=== PATIENT | female | born 1965 | race Caucasian/White ===

== ENCOUNTER → 2017-11-10 | Outpatient (CLI) | payer BC, OTHER ==
--- NOTE | 2017-11-10 12:13 | BD ---
EXAMINATION TYPE: MG DEXA axial skeleton. DATE OF EXAM: 11/10/2017 COMPARISON: NONE CLINICAL HISTORY: 52 YR OLD FEMALE...ICD-10 CODE: M19.90 OSTEOARTHRITIS Height: 60.5 Weight: 233 FRAX RISK QUESTIONS: Alcohol (3 or more units per day): NO Family History (Parent hip fracture): NO Glucocorticoids (More than 3mos): NO (Ex: prednisone, prednisolone, methylprednisolone, dexamethasone, and hydrocortisone). History of Fracture in Adulthood: NO Secondary Osteoporosis: NO 1. Type 1 Diabetes: NO 2. Hyperthyroidism: NO 3. Menopause before 45: NO 4. Malnutrition: NO 5. Chronic liver disease: NO Rheumatoid Arthritis: NO Current Tobacco Use: QUIT 6 YRS AGO RISK FACTORS HISTORY OF: Family History of Osteoporosis: NONE KNOWN Active: NOT REALLY Diet low in dairy products/other sources of calcium: NO Postmenopausal woman: YES AT AGE 50 YRS OLD Hyperparathyroidism: NO Adrenal Insufficiency: NO MEDICATIONS: Additional Medications: BP MEDS, XANAX, NARCO, Additional History: TOTAL LT KNEE, OSTEOARTHRITIS, HYPERTENSION, SCOLIOSIS, EXAM MEASUREMENTS: Bone mineral densitometry was performed using the [employer]. Bone mineral density as measured about the Lumbar spine is: ----- L1-L4(G/cm2): 1.226 T Score Values are as follows: ----- L1: -0.1 ----- L2: -0.4 ----- L3: 0.6 ----- L4: 1.5 ----- L1-L4: 0.4 Bone mineral density FIRST BONE DENSITY STUDY......BASELINE Bone mineral density about the R hip (g/cm2): 0.934 Bone mineral density about the L hip (g/cm2): 0.857 T Score values are as follows: -----R Neck: -0.9 -----L Neck: -1.1 -----R Total: -0.6 -----L Total: -1.2 Bone mineral density BASELINE STUDY FRAX%S: THERE IS A3.9% CHANCE OF A MAJOR OSTEOPOROTIC FX AND A 0.2% FOR HIP FX....PROBABILITY OF F X IN 10 YRS TIME IMPRESSION: Osteopenia (T Score between -2.5 and -1) with regards to the left femur. There is slightly increased risk of fracture and the patient may be considered for treatment. Re-Screen 2-5 years. NOTE: T-SCORE=SD OF THE YOUNG ADULT MEAN.
--- NOTE | 2017-11-12 09:58 | MM ---
Reason for exam: screening (asymptomatic). Last mammogram was performed 5 years and 11 months ago. Physical Findings: A clinical breast exam by your physician is recommended on an annual basis and results should be correlated with mammographic findings. MG Screening Mammo w CAD Bilateral CC and MLO view(s) were taken. Prior study comparison: December 09, 2011, bilateral digital screening mammo w/CAD. September 27, 2010, bilateral digital screening mammo w/CAD. The breast tissue is almost entirely fat. No significant changes when compared with prior studies. ASSESSMENT: Negative, BI-RAD 1 RECOMMENDATION: Routine screening mammogram of both breasts in 1 year.
== END | disposition home or self-care (01) ==
LOC: RADMAMWWP 09:33
PROVIDERS: ATTEND Family Medicine
DX: Z12.31 Encounter for screening mammogram for malignant neoplasm of breast (principal); M85.852 Other specified disorders of bone density and structure, left thigh; M19.90 Unspecified osteoarthritis, unspecified site
CPT/HCPCS: 77067; 77080

== ENCOUNTER 2018-09-25 18:33 | Inpatient (IN) | payer BC, OTHER ==
--- NOTE | 2018-09-25 19:01 | ED ---
Pediatric SOB HPI - General Chief Complaint: Shortness of Breath Stated Complaint: SOB/facial numbness Time Seen by Provider: 09/25/18 18:42 Source: patient, RN notes reviewed, old records reviewed Mode of arrival: ambulatory Limitations: no limitations - History of Present Illness Initial Comments: 53-year-old female history hypertension presents for evaluation of mild dyspnea , chest tightness, left arm and left face tingling. Patient states over the past 2 days he symptoms have been intermittent, initially attributed to menopausal symptoms. She has no history of CAD. No history of CVA. She is a nonsmoker, nondiabetic. She states that the tingling and numbness in her face and arm they have been ongoing for several months. She denies significant chest pain, this is a mild tightness associated with mild dyspnea. She does report diaphoresis with these episodes. - Related Data Home Medications Medication Instructions Recorded Confirmed Hydrocodone/Acetaminophen [[place] 1 tab PO QID PRN 02/24/14 09/25/18 10-325] ALPRAZolam [Xanax] 1 mg PO Q8HR PRN 05/21/16 09/25/18 Losartan/Hydrochlorothiazide 1 tab PO DAILY 05/21/16 09/25/18 [Losartan-Hctz 100-12.5 mg Tab] Phentermine HCl [Adipex-P] 37.5 mg PO QAM 05/21/16 09/25/18 amLODIPine BESYLATE [Norvasc] 5 mg PO DAILY 05/21/16 09/25/18 Aspirin EC [Ecotrin Low Dose] 81 mg PO DAILY PRN 09/25/18 09/25/18 Allergies Allergy/AdvReac Type Severity Reaction Status Date / Time No Known Allergies Allergy Verified 09/25/18 19:04 Review of Systems ROS Statement: Those systems with pertinent positive or pertinent negative responses have been documented in the HPI. ROS Other: All systems not noted in ROS Statement are negative. Past Medical History Past Medical History: Hypertension Additional Past Medical History / Comment(s): back pain, migraines History of Any Multi-Drug Resistant Organisms: None Reported Past Surgical History: Cholecystectomy, Tubal Ligation Additional Past Surgical History / Comment(s): 05-26-16- TOTAL LT KNEE REPLACEMENT Past Psychological History: Anxiety Smoking Status: Never smoker Past Alcohol Use History: Rare Past Drug Use History: Marijuana - Past Family History Mother Family Medical History: CVA/TIA (Mother at age 60 from CVA post rotator cuff tear surgery repair.), Hypertension, Thyroid Disorder Father History Unknown: Yes Family Medical History: No Reported History, Unable to Obtain (Her father is 88- year-old does not know much about him.) Sister(s) Family Medical History: Neurologic Disorder (Patient had 3 sisters one of them at the age of 40 from intracranial bleed.) Son(s) Family Medical History: No Reported History (Patient has 2 sons no major medical problems) General Exam Limitations: no limitations General appearance: alert, in no apparent distress Head exam: Present: atraumatic, normocephalic Eye exam: Present: normal appearance, PERRL ENT exam: Present: normal exam Neck exam: Present: normal inspection. Absent: tenderness, meningismus Respiratory exam: Present: normal lung sounds bilaterally. Absent: respiratory distress, wheezes, rales Cardiovascular Exam: Present: regular rate, normal rhythm GI/Abdominal exam: Present: soft. Absent: distended, tenderness, guarding Extremities exam: Present: normal inspection, full ROM, normal capillary refill. Absent: pedal edema Neurological exam: Present: alert, oriented X3, CN II-XII intact. Absent: motor sensory deficit Psychiatric exam: Present: normal affect, normal mood Skin exam: Present: warm, dry, intact. Absent: cyanosis, diaphoretic Course Vital Signs 09/25/18 18:38 Temperature 98.1 F Pulse Rate 77 Respiratory 18 Rate Blood Pressure 139/98 O2 Sat by Pulse 97 Oximetry - Reevaluation(s) Reevaluation #1: 09/25/181915 EKG: Normal sinus rhythm, LVH, rate of 64, MS interval 158, QRS duration 98, QTC 46, no ST segment elevation, T-wave inversion in lead 3 Medical Decision Making - Medical Decision Making 53-year-old female presenting for evaluation 2 days of chest pain, dyspnea, left arm tingling. Patient is well-appearing, stable vitals, non-focal neurologic exam. EKG is negative for ST segment elevation. Patient has no known history of CAD, she does have history of hypertension. Workup in the emergency department reveals chest x-ray negative for any acute cardiopulmonary disease, normal CBC, normal CMP, initial troponin is negative, BNP normal 52. Patient's will be placed in observation for serial cardiac enzymes, telemetry, heparin infusion, and cardiology consultation. - Lab Data Result diagrams: 09/25/18 19:13 09/25/18 19:13 Lab Results 09/25/18 09/25/18 09/25/18 Range/Units 19:13 19:13 19:13 WBC 8.9 (3.8-10.6) k/uL RBC 4.93 (3.80-5.40) m/uL Hgb 14.0 (11.4-16.0) gm/dL Hct 42.2 (34.0-46.0) % MCV 85.6 (80.0-100.0) fL MCH 28.4 (25.0-35.0) pg MCHC 33.1 (31.0-37.0) g/dL RDW 14.0 (11.5-15.5) % Plt Count 273 (150-450) k/uL Neutrophils % 49 % Lymphocytes % 40 % Monocytes % 5 % Eosinophils % 3 % Basophils % 1 % Neutrophils # 4.4 (1.3-7.7) k/uL Lymphocytes # 3.6 (1.0-4.8) k/uL Monocytes # 0.5 (0-1.0) k/uL Eosinophils # 0.3 (0-0.7) k/uL Basophils # 0.1 (0-0.2) k/uL PT (9.0-12.0) sec INR (<1.2) APTT (22.0-30.0) sec Sodium 139 (137-145) mmol/L Potassium 4.4 (3.5-5.1) mmol/L Chloride 107 (98-107) mmol/L Carbon Dioxide 22 (22-30) mmol/L Anion Gap 10 mmol/L BUN 15 (7-17) mg/dL Creatinine 0.68 (0.52-1.04) mg/dL Est GFR (CKD-EPI)AfAm >90 (>60 ml/min/1.73 sqM) Est GFR (CKD-EPI)NonAf >90 (>60 ml/min/1.73 sqM) Glucose 97 (74-99) mg/dL Calcium 9.8 (8.4-10.2) mg/dL Magnesium 2.0 (1.6-2.3) mg/dL Total Bilirubin 0.6 (0.2-1.3) mg/dL AST 24 (14-36) U/L ALT 26 (9-52) U/L Alkaline Phosphatase 131 H (38-126) U/L Total Creatine Kinase 76 (30-135) U/L CK-MB (CK-2) 0.5 (0.0-2.4) ng/mL CK-MB (CK-2) Rel Index 0.7 Troponin I <0.012 (0.000-0.034) ng/mL NT-Pro-B Natriuret Pep pg/mL Total Protein 8.5 H (6.3-8.2) g/dL Albumin 4.4 (3.5-5.0) g/dL Lipase 101 (23-300) U/L 09/25/18 09/25/18 Range/Units 19:13 19:13 WBC (3.8-10.6) k/uL RBC (3.80-5.40) m/uL Hgb (11.4-16.0) gm/dL Hct (34.0-46.0) % MCV (80.0-100.0) fL MCH (25.0-35.0) pg MCHC (31.0-37.0) g/dL RDW (11.5-15.5) % Plt Count (150-450) k/uL Neutrophils % % Lymphocytes % % Monocytes % % Eosinophils % % Basophils % % Neutrophils # (1.3-7.7) k/uL Lymphocytes # (1.0-4.8) k/uL Monocytes # (0-1.0) k/uL Eosinophils # (0-0.7) k/uL Basophils # (0-0.2) k/uL PT 9.7 (9.0-12.0) sec INR 0.9 (<1.2) APTT 24.1 (22.0-30.0) sec Sodium (137-145) mmol/L Potassium (3.5-5.1) mmol/L Chloride (98-107) mmol/L Carbon Dioxide (22-30) mmol/L Anion Gap mmol/L BUN (7-17) mg/dL Creatinine (0.52-1.04) mg/dL Est GFR (CKD-EPI)AfAm (>60 ml/min/1.73 sqM) Est GFR (CKD-EPI)NonAf (>60 ml/min/1.73 sqM) Glucose (74-99) mg/dL Calcium (8.4-10.2) mg/dL Magnesium (1.6-2.3) mg/dL Total Bilirubin (0.2-1.3) mg/dL AST (14-36) U/L ALT (9-52) U/L Alkaline Phosphatase (38-126) U/L Total Creatine Kinase (30-135) U/L CK-MB (CK-2) (0.0-2.4) ng/mL CK-MB (CK-2) Rel Index Troponin I (0.000-0.034) ng/mL NT-Pro-B Natriuret Pep 52 pg/mL Total Protein (6.3-8.2) g/dL Albumin (3.5-5.0) g/dL Lipase (23-300) U/L Disposition Clinical Impression: Chest pain, Unstable angina Disposition: ADMITTED IP TO THIS [facility] Condition: Stable Is patient prescribed a controlled substance at d/c from ED?: No Referrals: Chris Vick DO [Primary Care Provider] - 1-2 days Decision to Admit Reason: Admit from EC Decision Date: 09/25/18 Decision Time: 20:32
[2018-09-25 19:30] LABS: Basophils # (A) 0.1 k/uL (0-0.2); Basophils % (A) 1 %; Eosinophils # (A) 0.3 k/uL (0-0.7); Eosinophils % (A) 3 %; HCT 42.2 % (34.0-46.0); Lymphocytes # (A) 3.6 k/uL (1.0-4.8); Lymphocytes % (A) 40 %; MCH 28.4 pg (25.0-35.0); MCHC 33.1 g/dL (31.0-37.0); MCV 85.6 fL (80.0-100.0); Mean Platelet Volume 6.9; Monocytes # (A) 0.5 k/uL (0-1.0); Monocytes % (A) 5 %; Neutrophils # (A) 4.4 k/uL (1.3-7.7); Neutrophils % (A) 49 %; Platelet Count 273 k/uL (150-450); RBC 4.93 m/uL (3.80-5.40); WBC 8.9 k/uL (3.8-10.6)
--- NOTE | 2018-09-25 19:42 | XR ---
EXAMINATION TYPE: XR chest 2V DATE OF EXAM: 09/25/2018 COMPARISON: 02/24/2014 HISTORY: Chest pressure TECHNIQUE: Frontal and lateral views of the chest are obtained. FINDINGS: Heart and mediastinum are normal. Lungs are clear. Costophrenic angles are clear. There ar e chest leads. Bony thorax is intact. IMPRESSION: No active cardiopulmonary disease. Normal heart. No change.
[2018-09-25 19:46] LABS: Creatine Kinase 76 U/L (30-135)
[2018-09-25 19:48] LABS: ALT 26 U/L (9-52); AST 24 U/L (14-36); Albumin 4.4 g/dL (3.5-5.0); Alkaline Phosphatase 131 U/L (38-126); Anion Gap 10 mmol/L; Blood Urea Nitrogen 15 mg/dL (7-17); Calcium 9.8 mg/dL (8.4-10.2); Carbon Dioxide 22 mmol/L (22-30); Chloride 107 mmol/L (98-107); Glucose 97 mg/dL (74-99); Lipase 101 U/L (23-300); Sodium 139 mmol/L (137-145); Total Bilirubin 0.6 mg/dL (0.2-1.3); Total Protein 8.5 g/dL (6.3-8.2)
[2018-09-25 19:56] LABS: Creatine Kinase MB 0.5 ng/mL (0.0-2.4); INR 0.9 (<1.2); Partial Thromboplastin Time 24.1 sec (22.0-30.0); Prothrombin Time 9.7 sec (9.0-12.0)
[2018-09-25 20:00] LABS: Troponin I <0.012 ng/mL (0.000-0.034)
[2018-09-25 20:02] LABS: Potassium 4.4 mmol/L (3.5-5.1)
--- NOTE | 2018-09-25 20:08 | CT ---
EXAMINATION TYPE: CT brain wo con DATE OF EXAM: 09/25/2018 COMPARISON: None HISTORY: Left arm tingling and dizziness. CT DLP: 1048.4 mGycm Automated exposure control for dose reduction was used. FINDINGS: Ventricles of normal size. There is no mass effect nor midline shift. There is no sign of intracrania l hemorrhage. Calvarium is intact. IMPRESSION: NEGATIVE CT SCAN OF THE BRAIN.
[2018-09-25] MEDS ORDERED: ASPIRIN 325 MG TAB PO STA (20:28)
[2018-09-25] MEDS ORDERED: HEPARIN SODIUM,PORCINE 5,000 UNIT/ML 1 ML VIAL IV PRN (20:28)
[2018-09-25] MEDS ORDERED: HEPARIN SOD,PORK IN 0.45% NACL 25,000 UNIT in 0.45% NACL 1 250ML.BAG IV SCH (20:30)
[2018-09-25] MEDS ORDERED: NALOXONE 0.4 MG/ML 1 ML VIAL IV PRN (20:32)
[2018-09-25] MEDS ORDERED: MORPHINE SULFATE 4 MG/ML SYRINGE IV PRN (20:32)
[2018-09-25] MEDS ORDERED: ACETAMINOPHEN TAB 325 MG TAB PO PRN (20:32)
[2018-09-25] MEDS ORDERED: NITROGLYCERIN SL TABS 0.4 MG TAB SUBLINGUAL PRN (20:32)
[2018-09-25] MEDS ORDERED: ONDANSETRON 4 MG/2 ML VIAL IVP PRN (20:32)
[2018-09-25] MEDS: HEPARIN SODIUM,PORCINE 5,000 UNIT/ML 1 ML VIAL IV ONE ×2 (20:53→20:59)
[2018-09-25 21:35] VITALS: BMI 40.8
[2018-09-26 02:16] LABS: Creatine Kinase 58 U/L (30-135)
[2018-09-26 02:30] LABS: Creatine Kinase MB 0.4 ng/mL (0.0-2.4); Troponin I <0.012 ng/mL (0.000-0.034)
[2018-09-26 07:55] LABS: Creatine Kinase 54 U/L (30-135)
[2018-09-26 08:07] LABS: Creatine Kinase MB 0.5 ng/mL (0.0-2.4); Troponin I <0.012 ng/mL (0.000-0.034)
--- NOTE | 2018-09-26 10:11 | CONS ---
CONSULTATION HISTORY: Ms. Hickey is a 53-year-old female who is seen for cardiac evaluation. Patient's medical records were reviewed. The patient has a history of hypertension. The patient gives a history that she has been having intermittent pressure in the chest for last 2 months, which comes and goes, not definitely related to exertion and may come at any time. For last couple of days she was having some tingling and numbness on the left side of the face and the left arm and she came to the emergency room and subsequently was admitted. EKG did not show any acute ischemic changes. She had a CT of the brain which was normal. Patient has a history of hypertension. She does not know about her cholesterol and she does not smoke. There is no family history of premature coronary artery disease. PAST MEDICAL HISTORY: Includes a history of cholecystectomy and tubal ligation. The patient had a total left knee replacement in 2016. FAMILY HISTORY: The patient's mother at the age of 60 from CVA. There is a family history of hypertension. SOCIAL HISTORY: Patient was never a smoker. PHYSICAL EXAMINATION: At present reveals a 53-year-old female who does not appear to be in any acute distress. The patient's initial blood pressure in the emergency room was 139/98 mmHg. Patient's blood pressure now is 131/89 mmHg, heart rate is 55 per minute. HEENT: Examination is negative. NECK: Supple. There is no increase in jugular venous pressure. Both the carotid pulses are felt. There is no bruit. CHEST: Symmetrical HEART: The PMI is not felt. First and second heart sounds are heard. There is no evidence of any murmur. LUNGS: Clinically clear to auscultation and percussion. ABDOMEN: Negative. EXTREMITIES: Peripheral pulses are 2+. EKG shows normal sinus rhythm without any acute ischemic changes. Patient's cardiac enzymes are normal. The patient's proBNP level is 52. IMPRESSION: 1. Chest discomfort suggestive of atypical angina. 2. Left-sided facial numbness, exact etiology undetermined. PLAN: The patient will be evaluated with echocardiogram and stress echo. BETSEY / WILLAM: [id number] /
[2018-09-26] MEDS ORDERED: HYDROcodone/APAP 10-325MG 1 EACH TAB PO PRN (10:48)
[2018-09-26] MEDS ORDERED: ALPRAZolam 1 MG TAB PO PRN (10:48)
[2018-09-26] MEDS ORDERED: ASPIRIN 81 MG PO PRN (10:48)
--- NOTE | 2018-09-26 13:22 | P.HPIM ---
History of Present Illness H&P Date: 09/26/18 Chief Complaint: Chest pain and facial numbness This is 53 years old female with past medical history significant for hypertension presents to the emergency department with chest tightness that started prior to arrival to the emergency and stated that the pain was radiating to her left arm and had numbness in her left face patient was concerned and presented to the emergency. Patient denies any recent upper respiratory infection nausea or vomiting shortness breath diaphoresis or abdominal pain. Patient stated described the pain as tightness in the chest. A shunt was pain free by the time she got to the emergency department but continued to have occasional facial numbness that been going for the last 2 month period and emergency department troponin was negative EKG showed LVH and her troponin was normal for the rest of the series. CAT scan was done and normal chest x-ray was done and normal patient was kept for observation patient denied tobacco alcohol or drug abuse Review of Systems All 14 systems reviewed and negative except as above Past Medical History Past Medical History: Hypertension Additional Past Medical History / Comment(s): back pain, migraines History of Any Multi-Drug Resistant Organisms: None Reported Past Surgical History: Cholecystectomy, Tubal Ligation Additional Past Surgical History / Comment(s): 05-26-16- TOTAL LT KNEE REPLACEMENT Past Anesthesia/Blood Transfusion Reactions: No Reported Reaction Past Psychological History: Anxiety Smoking Status: Former smoker Past Alcohol Use History: Rare Past Drug Use History: Marijuana - Past Family History Mother Family Medical History: CVA/TIA, Hypertension, Thyroid Disorder Father History Unknown: Yes Family Medical History: No Reported History, Unable to Obtain Sister(s) Family Medical History: Neurologic Disorder Son(s) Family Medical History: No Reported History Medications and Allergies Home Medications Medication Instructions Recorded Confirmed Type Hydrocodone/Acetaminophen [[place] 1 tab PO QID PRN 02/24/14 09/25/18 History 10-325] ALPRAZolam [Xanax] 1 mg PO Q8HR PRN 05/21/16 09/25/18 History Losartan/Hydrochlorothiazide 1 tab PO DAILY 05/21/16 09/25/18 History [Losartan-Hctz 100-12.5 mg Tab] Phentermine HCl [Adipex-P] 37.5 mg PO QAM 05/21/16 09/25/18 History amLODIPine BESYLATE [Norvasc] 5 mg PO DAILY 05/21/16 09/25/18 History Aspirin EC [Ecotrin Low Dose] 81 mg PO DAILY PRN 09/25/18 09/25/18 History Allergies Allergy/AdvReac Type Severity Reaction Status Date / Time No Known Allergies Allergy Verified 09/25/18 19:04 Physical Exam Vitals: Vital Signs Temp Pulse Pulse Pulse Resp BP BP 09/26/18 12:00 97.6 F 62 18 138/92 09/26/18 11:56 55 L 18 09/26/18 08:00 97.5 F L 55 L 18 131/89 09/26/18 04:16 57 L 16 133/78 09/26/18 04:00 16 09/26/18 03:48 97.9 F 72 14 137/98 09/26/18 00:00 98.0 F 68 14 136/72 09/25/18 23:45 98.1 F 57 L 16 136/89 09/25/18 23:18 15 09/25/18 21:51 98.7 F 72 15 148/99 09/25/18 21:00 60 16 132/65 09/25/18 18:38 98.1 F 77 18 139/98 Pulse Ox 09/26/18 12:00 97 09/26/18 11:56 09/26/18 08:00 98 09/26/18 04:16 97 09/26/18 04:00 09/26/18 03:48 95 09/26/18 00:00 97 09/25/18 23:45 09/25/18 23:18 09/25/18 21:51 98 09/25/18 21:00 97 09/25/18 18:38 97 Intake and Output 09/25/18 09/26/18 09/26/18 22:59 06:59 14:59 Other: Voiding Method Toilet Toilet # Voids 2 Weight 97.976 kg Gen.: in stated age, no acute distress Heart: Normal S1-S2 Lungs: Clear to auscultation bilaterally Abdomen: Soft, no tenderness, positive bowel sounds in all 4 quadrant no guarding or rebound Skin: No new rash Psych: Alert and oriented 3 Neuro: No focal deficit Results CBC & Chem 7: 09/25/18 19:13 09/25/18 19:13 Labs: Abnormal Lab Results - Last 24 Hours (Table) 09/25/18 Range/Units 19:13 Alkaline Phosphatase 131 H (38-126) U/L Total Protein 8.5 H (6.3-8.2) g/dL Thrombosis Risk Factor Assmnt - Choose All That Apply Each Factor Represents 1 point: Age 41-60 years, Obesity (BMI >25) Thrombosis Risk Factor Assessment Total Risk Factor Score: 2 Thrombosis Risk Factor Assessment Level: Low Risk Assessment and Plan Assessment: 1. Chest tightness. 2. Left facial numbness, chronic. 3. Hypertension area 4. Obesity. 5. Anxiety. 6. Migraine. 7. Chronic back pain. Patient was seen by cardiology who recommended stress echo in the morning but patient stated that she wanted be able to run on the treadmill due to her chronic back pain issues and she would like to chemical test to be done with the failure that to cardiology. Given the fact that the numbness on her face has been going for 2 month I would like to proceed with MRI of the brain without contrast to rule out any intracranial process continue her home medication and consider discharge based on clinical progress
[2018-09-27 08:30] VITALS: RESP 16; TEMP 96.8
[2018-09-27] MEDS ORDERED: LOSARTAN 50 MG TAB PO SCH (09:00)
[2018-09-27] MEDS ORDERED: amLODIPine 5 MG TAB PO SCH (09:00)
[2018-09-27] MEDS ORDERED: HYDROCHLOROTHIAZIDE 12.5 MG CAP PO SCH (09:00)
[2018-09-27] MEDS ORDERED: DOBUTamine DRIP for NUC MED 500 MG in DEXTROSE/WATER 1 250ML.BAG IV ONE (10:36)
--- NOTE | 2018-09-27 12:22 | MR ---
EXAMINATION TYPE: MR brain wo con DATE OF EXAM: 09/27/2018 COMPARISON: 09/25/2018 CT brain HISTORY: facial numbness TECHNIQUE: Multiplanar, multisequence images of the brain and brainstem is performed without intravenous contras t. FINDINGS: Diffusion weighted images demonstrate no evidence of a recent infarct or other diffusion ab normality. There is no extra-axial fluid collection. Few scattered foci of T2/FLAIR hyperintensity are seen within the subcortical and periventricular white matter. The ventricular system and cisterna l spaces are normal in size and appearance. The brain volume is age appropriate. Midline structures demonstrate normal morphology. An 8 mm Thornwaldt cyst is incidentally noted. The craniocervical junction appears within normal limits. Post contrast images demonstrate no abnormal enhancement. The dural venous sinuses appear patent. Mild mucosal thickening is seen of the ethmoid s inuses. The remaining visualized sinuses are clear and the globes are intact. Possible small develop mental venous anomaly is seen within the right cerebellar hemisphere. IMPRESSION: 1. No evidence of acute infarct, mass effect. MRI with contrast could evaluate for neuritis in this p atient with facial numbness. 2. Mild burden nonspecific white matter change, most commonly on the basis of chronic microangiopathy although can be seen in demyelinating disease or vasculitis (less likely).
--- NOTE | 2018-09-27 13:22 | ECHOF ---
Referral Reason:cp MEASUREMENTS -------- HEIGHT: 152.4 cm WEIGHT: 98.0 kg BP: RVIDd: 3.1 cm (< 3.3) IVSd: 1.3 cm (0.6 - 1.1) LVIDd: 3.9 cm (3.9 - 5.3) LVPWd: 1.2 cm (0.6 - 1.1) IVSs: 1.6 cm LVIDs: 3.1 cm LVPWs: 1.4 cm LA Diam: 3.6 cm (2.7 - 3.8) Ao Diam: 2.8 cm (2.0 - 3.7) AV Cusp: 1.9 cm (1.5 - 2.6) LA Diam: 3.4 cm (2.7 - 3.8) MV EXCURSION: 14.956 mm (> 18.000) MV EF SLOPE: 53 mm/s (70 - 150) EPSS: 0.8 cm MV E Arie: 0.45 m/s MV DecT: 282 ms MV A Arie: 0.85 m/s MV E/A Ratio: 0.53 RAP: 5.00 mmHg RVSP: 15.10 mmHg FINDINGS -------- Sinus rhythm. This was a technically adequate study. The left ventricular size is normal. There is mild concentric left ventricular hypertrophy. Overa ll left ventricular systolic function is normal with, an EF between 55 - 60 %. The right ventricle is normal in size. The left atrial size is normal. The right atrial size is normal. The aortic valve is trileaflet, and appears structurally normal. No aortic stenosis or regurgitation. Mild mitral annular calcification present. Mild mitral regurgitation is present. Mild tricuspid regurgitation present. The right ventricular systolic pressure, as measured by Doppl er, is 15.10mmHg. The pulmonic valve was not well visualized. The aortic root size is normal. There is no pericardial effusion. CONCLUSIONS -------- 1. The left ventricular size is normal. 2. There is mild concentric left ventricular hypertrophy. 3. Overall left ventricular systolic function is normal with, an EF between 55 - 60 %. 4. The right ventricle is normal in size. 5. The left atrial size is normal. 6. The right atrial size is normal. 7. The aortic valve is trileaflet, and appears structurally normal. No aortic stenosis or regurgitati on. 8. Mild mitral annular calcification present. 9. Mild mitral regurgitation is present. 10. Mild tricuspid regurgitation present. 11. The right ventricular systolic pressure, as measured by Doppler, is 15.10mmHg. 12. The pulmonic valve was not well visualized. 13. The aortic root size is normal. 14. There is no pericardial effusion. BUSINESS ASSOCIATE: Ale Allen RDCS
--- NOTE | 2018-09-27 16:03 | P.PN ---
Subjective Progress Note Date: 09/27/18 This is a 53-year-old female seen in consultation yesterday by Dr. VC Weathers. She presented to the hospital with symptoms of chest discomfort. Her EKG did not show any ischemic changes, patient underwent a dobutamine echocardiographic study today which was negative for any reversible ischemia. Objective - Vital Signs Vital signs: Vital Signs Temp 96.8 F L 09/27/18 08:00 Pulse 62 09/27/18 08:00 Resp 16 09/27/18 12:00 BP 139/84 09/27/18 08:00 Pulse Ox 96 09/27/18 08:00 Intake & Output 09/26/18 09/27/18 09/27/18 18:59 06:59 18:59 Intake Total 10 360 Balance 10 360 Weight 98.6 kg 97.976 kg Intake: IV 10 0.9 10 Oral 360 Other: Voiding Method Toilet Toilet Toilet # Voids 1 2 - Exam PHYSICAL EXAMINATION: GENERAL: 53-year-old female in no acute distress at the time of my examination HEENT: Head is atraumatic, normocephalic. Pupils equal, round. Sclera anicteric. Conjunctiva are clear. Mucous membranes of the mouth are moist. Neck is supple. There is no elevated jugular venous pressure. No carotid bruit is heard. HEART EXAMINATION: Heart S1, S2 normal. No murmur or gallop heard. CHEST EXAMINATION: Lungs are clear to auscultation and precussion. No chest wall tenderness is noted on palpation or with deep breathing. ABDOMEN: Soft, nontender. Bowel sounds are heard. No organomegaly noted. EXTREMITIES: 2+ peripheral pulses with no evidence of peripheral edema and no calf tenderness noted. NEUROLOGIC patient is awake, alert and oriented 3 . . - Labs CBC & Chem 7: 09/25/18 19:13 09/25/18 19:13 Assessment and Plan Plan: Assessment and plan #1 atypical chest discomfort #2 left-sided facial numbness Plan Dobutamine echocardiographic study negative for any reversible ischemia. Echocardiogram with Doppler study revealed a normal left ventricular systolic function. MRI of the brain did not reveal any evidence of acute infarct mass effect or mass effect. From cardiology's perspective, patient may be able to be discharged home today. DNP note has been reviewed, I agree with a documented findings and plan of care. Patient was seen and examined.
--- NOTE | 2018-09-27 16:27 | ECHOS ---
STRESS ECHOCARDIOGRAM DATE OF SERVICE: 09/27/2018 INDICATIONS: Chest pain. MEDICATIONS: BASELINE HEART RATE: 70 BASELINE BLOOD PRESSURE: 123/97 MAXIMUM HEART RATE: 143 MAXIMUM BLOOD PRESSURE: 147/78 85% MPHR: 143 100% MPHR: 168 METS: MAXIMUM STAGE REACHED: 3 TOTAL EXERCISE TIME: 7:30 CLINICAL INFORMATION: STRESS DATA: Pre-testing physical examination showed a heart rate of 70, pressure 123/97 mmHg. Baseline EKG showed sinus mechanism. Dobutamine infusion at the dose of 10 mcg/kg per minute was initiated and increased to 50 mcg/kg per minute per protocol. The maximum heart rate was 143, which is about 85% of maximum predicted heart rate. Maximum blood pressure was 147/87 mmHg. Clinically the patient has no symptoms. The EKG did not show any significant ST or T-wave abnormalities concerning for ischemia. ECHOCARDIOGRAM IMAGES: On echocardiogram images from parasternal long axis view, parasternal short axis view, apical 4-chamber and apical 2-chamber views were obtained as baseline images, at low-dose dobutamine infusion, at peak heart rate as well as on recovery, and the echocardiogram images showed good augmentation of the the left ventricular systolic function without any evidence of wall motion abnormalities concerning for ischemia. CONCLUSION: 1. Normal EKG in response to dobutamine. 2. Normal echocardiogram in response to dobutamine. MMODL / IJN: [id number] /
[2018-09-27 16:35] VITALS: BP 160/109; PULSE 79
== END 2018-09-27 16:45 | disposition home or self-care (01) | DRG 311 ==
LOC: EC 18:33 → 1SOBS 20:32 → OBSVTOIN 20:32 → 3SCARD 09-26 16:59
PROVIDERS: ADMIT Family Medicine; ATTEND Family Medicine
DX: I20.8 Other forms of angina pectoris (principal); Z68.41 Body mass index [BMI] 40.0-44.9, adult; I10 Essential (primary) hypertension; E66.9 Obesity, unspecified; F41.9 Anxiety disorder, unspecified; G43.909 Migraine, unspecified, not intractable, without status migrainosus; G89.29 Other chronic pain; Z79.82 Long term (current) use of aspirin; Z79.899 Other long term (current) drug therapy; Z82.3 Family history of stroke; Z82.49 Family history of ischemic heart disease and other diseases of the circulatory system; Z90.49 Acquired absence of other specified parts of digestive tract; Z87.891 Personal history of nicotine dependence; Z96.652 Presence of left artificial knee joint; R20.0 Anesthesia of skin; M54.9 Dorsalgia, unspecified
CPT/HCPCS: 36415; 70450; 70551; 71046; 80053; 82550; 82553; 83690; 83735; 83880; 84484; 85025; 85610; 85730; 93005; 93306; 93351; 99285

== ENCOUNTER → 2019-06-20 | Outpatient (CLI) | payer BC, OTHER ==
[2019-06-20 10:37] LABS: HCT 42.1 % (34.0-46.0); HGB 13.6 gm/dL (11.4-16.0); MCH 28.4 pg (25.0-35.0); MCHC 32.2 g/dL (31.0-37.0); MCV 88.3 fL (80.0-100.0); Mean Platelet Volume 6.5; Platelet Count 289 k/uL (150-450); RBC 4.76 m/uL (3.80-5.40); WBC 6.6 k/uL (3.8-10.6)
[2019-06-20 10:44] LABS: INR 0.9 (<1.2); Partial Thromboplastin Time 22.9 sec (22.0-30.0); Prothrombin Time 9.9 sec (9.0-12.0)
[2019-06-20 10:48] LABS: Appearance,Urine Clear (Clear); Bilirubin,Urine Negative (Negative); Blood,Urine Negative (Negative); Color,Urine Colorless; Glucose,Urine (UA) Negative (Negative); Ketones,Urine Negative (Negative); Leukocyte Esterase,Urine Negative (Negative); Nitrite,Urine Negative (Negative); Protein,Urine Negative (Negative); Specific Gravity,Urine 1.003 (1.001-1.035); Urobilinogen,Urine <2.0 mg/dL (<2.0)
[2019-06-20 10:57] LABS: ALT 20 U/L (9-52); AST 20 U/L (14-36); African American GFR (CKD) >90 (>60 ml/min/1.73 sqM); Alkaline Phosphatase 126 U/L (38-126); Anion Gap 7 mmol/L; Blood Urea Nitrogen 17 mg/dL (7-17); Calcium 9.5 mg/dL (8.4-10.2); Carbon Dioxide 28 mmol/L (22-30); Chloride 105 mmol/L (98-107); Glucose 83 mg/dL (74-99); Potassium 4.6 mmol/L (3.5-5.1); Sodium 140 mmol/L (137-145); Total Bilirubin 0.3 mg/dL (0.2-1.3); Total Protein 7.4 g/dL (6.3-8.2)
== END ==
LOC: LABPAT 10:03
PROVIDERS: ATTEND Orthopaedic Surgery
DX: Z01.812 Encounter for preprocedural laboratory examination (principal)
CPT/HCPCS: 36415; 80053; 81003; 85027; 85610; 85730; 87070

== ENCOUNTER 2019-07-05 07:38 | Day surgery (SDC) | payer BC, OTHER ==
[2019-06-30 12:34] VITALS: BMI 41.5
[~2019-07-05 07:38] MED LIST: ACETAMINOPHEN TAB 500 MG TAB PO ONE; DEXAMETHASONE SOD PHOSPHATE 10 MG/ML 1 ML VIAL IV ONE; GABAPENTIN 300 MG CAP PO ONE; HYDROmorphone 0.5 MG/0.5 ML SYRINGE IVP PRN; LIDOCAINE 1% 20 ML VIAL (10MG/ML) FOR IV START INTRADERMA PRN; MELOXICAM 7.5 MG TAB PO ONE; MIDAZOLAM 2 MG/2 ML VIAL IV PRN; ONDANSETRON 4 MG/2 ML VIAL IVP ONE; ROPIVACAINE 246.25 MG, EPINEPHrine 0.5 MG, KETOROLAC 30 MG, cloNIDine HCL/PF 80 MCG, WA... MISCELLANE ONE; TRANEXAMIC ACID 1,000 MG in SODIUM CHLORIDE 0.9% 100 ML IVPB ONE; fentaNYL (PF) 50 MCG/ML 2 ML AMP IVP PRN
[2019-07-05] MEDS: LACTATED RINGERS 1,000 ML IV SCH (08:08)
[2019-07-05] MEDS ORDERED: MIDAZOLAM 2 MG/2 ML VIAL IVP ONE (08:31)
[2019-07-05] MEDS ORDERED: NALOXONE 0.4 MG/ML 1 ML VIAL IV PRN (08:46)
[2019-07-05] MEDS ORDERED: HYDROmorphone 1 MG/ML 1 ML SYRINGE IVP PRN (08:46)
[2019-07-05] MEDS ORDERED: MAGNESIUM HYDROXIDE 2,400 MG/10 ML CUP PO PRN (08:46)
[2019-07-05] MEDS ORDERED: NA PHOS,M-B/NA PHOS,DI-BA 133 ML ENEMA RECTAL PRN (08:46)
[2019-07-05] MEDS ORDERED: HYDROmorphone 0.5 MG/0.5 ML SYRINGE IVP PRN ×2 (08:46)
[2019-07-05] MEDS ORDERED: ONDANSETRON 4 MG/2 ML VIAL IVP PRN (08:46)
[2019-07-05] MEDS ORDERED: hydrOXYzine PAMOATE 25 MG CAP PO PRN (08:46)
[2019-07-05] MEDS ORDERED: HYDROcodone/APAP 5-325MG 1 EACH TAB PO PRN ×2 (08:46)
[2019-07-05] MEDS ORDERED: BISACODYL 10 MG SUPP RECTAL PRN (08:46)
[2019-07-05] MEDS ORDERED: DIAZEPAM 5 MG TAB PO PRN (08:46)
[2019-07-05] MEDS ORDERED: LIDOCAINE 1% INJ 10MG/ML (20 ML MDV) ONE (09:14)
[2019-07-05] MEDS ORDERED: TRANEXAMIC ACID 1,000 MG/10 ML VIAL ONE (09:14)
[2019-07-05] MEDS ORDERED: diphenhydrAMINE 50 MG/ML 1 ML VIAL ONE (09:14)
[2019-07-05] MEDS ORDERED: PROPOFOL 10 MG/ML 20 ML VIAL IV ONE (09:14)
[2019-07-05] MEDS ORDERED: SUCCINYLCHOLINE CHLORIDE 100 MG/5 ML SYR IV ONE (09:14)
[2019-07-05] MEDS ORDERED: SODIUM CHLORIDE 0.9% 100 ML BAG ONE (09:14)
[2019-07-05] MEDS ORDERED: fentaNYL (PF) 50 MCG/ML 2 ML AMP ONE (09:14)
[2019-07-05] MEDS ORDERED: MIDAZOLAM 2 MG/2 ML VIAL ONE (09:14)
[2019-07-05] MEDS ORDERED: ceFAZolin 3,000 MG in SODIUM CHLORIDE 0.9% IRRIGATIO 3,000 ML IRRIGATION ONE (09:19)
[2019-07-05] MEDS ORDERED: LACTATED RINGERS 1,000 ML IV ONE ×2 (09:47)
--- NOTE | 2019-07-05 10:39 | P.OP ---
Date of Procedure: 07/05/19 Preoperative Diagnosis: Severe osteoarthritis right knee Postoperative Diagnosis: Severe osteoarthritis right knee Procedure(s) Performed: Right total knee arthroplasty Implants: [employer]ing [employer] Nephew Journey II CR Oxinium cruciate retaining femoral component size 4, right [employer] Journey right nonporous tibial baseplate size 3 [employer] Journey II, XLPE CRarticular insert, size 13 mm, Size 3-4 right [employer] Journey BCS resurfacing oval patellar component, 29 mm All components were cemented using Palacos R bone cement.. The articulation is Oxinium on polyethylene. Anesthesia: GETA Surgeon: Alexandre Lambert Branch Specialist #1: Asya Ryder Estimated Blood Loss (ml): 50 Pathology: other (Bone and cartilage) Condition: stable Disposition: PACU Indications for Procedure: After failure of conservative treatment we discussed the surgical and nonsurgical treatment options at length. Patient wishes to proceed with a total knee arthroplasty. Complications specific to this procedure were discussed at length, including but not limited to infection, bleeding, stiffness, and nerve injury. Patient is aware of all these complications and informed consent was obtained Operative Findings: The operative findings are consistent with severe osteoarthritis of the right knee Description of Procedure: Patient was seen in the preoperative area consent was reviewed and operative site was marked with a skin marker. An adductor canal pain catheter was placed by anesthesia in the preoperative area. Patient was then brought to the operating room and given preoperative antibiotics intravenously. A spinal anesthetic was administered by the anesthesia department. A spinal anesthetic was unsuccessful, so general anesthetic was administered. A tourniquet was placed on the upper thigh and the lower extremity was prepped and draped in usual sterile fashion. A gram of transexamic acid was given. A universal timeout was then performed which confirmed the patient's name, surgical site, ALLERGIES, and consent. The lower extremity was then exsanguinated and tourniquet was inflated to 250 mmHg. A standard and anterior midline approach to the knee was performed. The skin and subcutaneous tissue was dissected down to the patellar tendon. A medial parapatellar arthrotomy was then performed. The knee was then extended, the patellar was everted, and the knee was again flexed. Anterior horns of both menisci were excised, and a release was performed to the posterior medial aspect of the knee. On gross visual inspection, there was complete loss of articular cartilage in the medial and patellofemoral joint spaces. There was also significant cartilage damage in the lateral compartment. There were multiple periarticular osteophytes which were then removed with a Ronguer. The femoral canal was then opened with the appropriate drill, and the intramedullary femoral cutting guide was then placed and set for 5 of valgus. The distal femoral cutting block was then pinned in place, and the distal femur was then cut. The cutting block was then removed and the cut was checked for flatness. Next, the sizing guide was then placed and set for 3 external rotation based off of the epicondylar axis and Whitesides line. After the femur was sized, the appropriate 4-in-1 cutting block was then pinned in place. The anterior condyles were cut without notching. The posterior and chamfer cuts were performed while protecting the collateral ligaments. The cutting block was then removed, and the femoral canal was plugged with autologous bone. Attention was then directed to the tibia. The remaining ACL was removed with a Ronguer, and the tibia was then gently subluxed forward with a large bent knee retractor. Any remaining menisci was excised. The posterior lateral corner was cauterized in order to cauterize the lateral geniculate artery. The extra medullary tibial cutting guide was then placed, set for the appropriate rot ation, slope, and depth of resection. The proximal tibia cutting guide was then pinned in place. Proximal tibia was then cut and sized. Next trials were then placed with the appropriate-sized insert. The knee was able to fully extend and flex to 130 and was stable throughout all range of motion. The knee was then extended, patella everted. Patella was then measured, and then using an osteot ethel guide, the patella was cut at the appropriate level. The patella was then measured and drilled and the patella trial was then placed. The knee was then taken through range of motion with the patella trial and the patella tracked normally. The knee was then extended patella trial was then removed and the patella was everted. Knee was then flexed and lug holes were drilled through the femoral trial and the femoral trial was then removed. The tibial was then exposed, and the tibial broach guide was then pinned in place after it was set for the appropriate rotation to allow for the most coverage without overhang. The tibia was then reamed and broached. The cut surfaces of bone were then irrigated with pulsatile lavage. The posterior structures were injected with the ropivacaine solution. The knee was also irrigated with Irrisept solution. The components were then opened, the cement was mixed, and the components were then cemented in place. The cement was allowed to harden with the knee in full extension. While the cement was hardening, the remaining soft tissues were then injected with a ropivacaine solution, which consisted of 246.25 mg of ropivacaine, 0.5 mg of epinephrine, 30 mg of Toradol, 80 g of clonidine, and 48.45 mL of sterile water, for a total of 100 mL of fluid injected. After the cemented hardened. The tourniquet was released, and hemostasis was obtained. A second gram of transexamic acid was given. The knee was again irrigated. The knee was again taken through range of motion and found to be stable throughout all range of motion of 0-130, and the patella tracked normally. The fascia was then closed with #2 strata fix suture. The subcutaneous tissue was closed with 3-0 Vicryl and 3-0 strata fix. Dermabond glue was used for the skin and placed with the knee in flexion. The patient was placed in a sterile silver dressing. Patient was then transferred to recovery room in stable condition. The high school assistant principal GUEVARA Fuchs was required due the complexity surgery and the need for a skilled surgical lead. She assisted in positioning, draping, retraction, and closure of the wound.
[2019-07-05] MEDS ORDERED: ROPIVACAINE 0.2%-NS ON-Q PUMP 1,090 MG, EMPTY PAIN BALL 1 EACH MISCELLANE PRN (11:19)
--- NOTE | 2019-07-05 11:46 | XR ---
EXAMINATION TYPE: XR knee limited RT DATE OF EXAM: 07/05/2019 CLINICAL HISTORY: Postoperative evaluation Two views of the right knee are submitted. Identified are changes of total knee arthroplasty with femoral and tibial components appearing well seated. Postsurgical soft tissue changes are noted. Alignment is anatomic.
[2019-07-05] MEDS ORDERED: ONDANSETRON 4 MG/2 ML VIAL IVP ONE (12:28)
[2019-07-05] MEDS: SODIUM CHLORIDE 0.9% 1,000 ML IV SCH (12:35)
[2019-07-05] MEDS ORDERED: ALPRAZolam 0.5 MG TAB PO PRN (15:31)
--- NOTE | 2019-07-05 20:39 | P.ANPRN ---
Procedure Note - Anesthesia - Nerve Block Performed Right Adductor Canal Infusion Time Out Performed: Yes Date of Procedure: 07/05/19 Procedure Start Time: Procedure Stop Time: : Location of Patient: PreOp Indication: Acute Post-Operative Pain, Requested by Surgeon Sedation Type: Sedate with meaningful contact maintained Preparation: Sterile Prep, Sterile Dressing Position: Supine Catheter: Indwelling Needle Types: Pajunk Needle Gauge: 21 Ultrasound used to visualize needle placement: Yes Ultrasound used to observe medication spread: Yes Blood Aspirated: No Pain Paresthesia on Injection Noted: No Resistance on Injection: Normal Image Stored and Saved: Yes Events: Uneventful and Well Tolerated (ropi .5% 20cc)
[2019-07-05] MEDS ORDERED: SENNOSIDES-DOCUSATE SODIUM 1 EACH TAB PO SCH (21:00)
[2019-07-05] MEDS: ASPIRIN 325 MG TAB PO SCH (21:27)
[2019-07-06] MEDS: SODIUM CHLORIDE 0.9% 1,000 ML IV SCH (00:14)
[2019-07-06] MEDS: LACTATED RINGERS 1,000 ML IV SCH (05:32)
[2019-07-06 07:20] LABS: Basophils # (A) 0.1 k/uL (0-0.2); Basophils % (A) 1 %; Eosinophils % (A) 0 %; HCT 37.6 % (34.0-46.0); HGB 11.8 gm/dL (11.4-16.0); Lymphocytes # (A) 2.4 k/uL (1.0-4.8); Lymphocytes % (A) 22 %; MCH 27.9 pg (25.0-35.0); MCHC 31.3 g/dL (31.0-37.0); MCV 89.3 fL (80.0-100.0); Mean Platelet Volume 6.5; Monocytes # (A) 0.7 k/uL (0-1.0); Monocytes % (A) 6 %; Neutrophils # (A) 7.8 k/uL (1.3-7.7); Neutrophils % (A) 71 %; Platelet Count 225 k/uL (150-450); RBC 4.21 m/uL (3.80-5.40); RDW 13.1 % (11.5-15.5)
[2019-07-06 07:41] VITALS: PULSE 70; RESP 17; TEMP 97.9
[2019-07-06] MEDS: ASPIRIN 325 MG TAB PO SCH (07:49)
--- NOTE | 2019-07-06 08:55 | P.DS ---
Providers Expected date of discharge: 07/06/19 Attending physician: Alexandre Lambert Consults: 07/05/19 08:46 Consult Physician Routine Consulting Provider: Michael Griffin Reason/Comments: medical management Do you want consulting provider notified?: Yes Primary care physician: Chris Vick - Discharge Diagnosis(es) (1) Osteoarthritis of right knee Current Visit: Yes Status: Acute (2) S/P total knee arthroplasty Current Visit: Yes Status: Acute Hospital Course: This is a 54-year-old female with known history of degenerative arthritis of the right knee. The patient presents for evaluation. After discussion and consideration patient elects to proceed with total knee arthroplasty. The patient is seen preoperatively by Dr. Lambert and medically cleared for surgery by their primary care physician. Patient is admitted to [facility] on 07/05/2019 for total knee arthroplasty. The procedures performed without complication or sequelae. The patient is doing well postoperatively. Labs and vital signs are stable on day of discharge. On day of discharge patient's knee incision is healing well. There is minimal erythema. There is no drainage noted at this time. There is minimal soft tissue swelling to the knee. Patient has full foot and ankle motion without difficulty or pain. Calf is soft and nontender to palpation. Neurovascular status to the right lower extremity is intact. Patient is discharged home in good condition. Opioid start talking form is reviewed and signed at patient bedside. Patient states that she has a pain contract with another physician and does not need a prescription for postop pain medication. Please see med rec for accurate list of home medications. Plan - Discharge Summary Discharge Rx Participant: No New Discharge Prescriptions: New Aspirin 325 mg PO BID #60 tab No Action Hydrocodone/Acetaminophen [Felicity 10-325] 1 tab PO QID PRN PRN Reason: Pain ALPRAZolam [Xanax] 1 mg PO BID PRN PRN Reason: Anxiety Phentermine HCl [Adipex-P] 37.5 mg PO QAM Losartan [Cozaar] 100 mg PO QAM Discharge Medication List Hydrocodone/Acetaminophen [Felicity 10-325] 1 tab PO QID PRN 02/24/14 [History] ALPRAZolam [Xanax] 1 mg PO BID PRN 05/21/16 [History] Phentermine HCl [Adipex-P] 37.5 mg PO QAM 05/21/16 [History] Losartan [Cozaar] 100 mg PO QAM 06/30/19 [History] Aspirin 325 mg PO BID #60 tab 07/06/19 [Rx] Follow up Appointment(s)/Referral(s): Alexandre Lambert DO [Doctor of Osteopathic Medicine] - 2 Weeks Ambulatory/Diagnostic Orders: Continuous Passive Motion (CPM) Machine [DME.AMB1] Time Frame: 3 Weeks, Location: None Selected Activity/Diet/Wound Care/Special Instructions: Weightbearing as tolerated with a walker. CPM 5-6h daily. Leave dressing intact. May be removed by home care nurse or by patient in 10 days. May shower with dressing on. Recommend use of compression stockings daily for at least 2 weeks during the day to help prevent swelling and blood clots. May remove at night before sleeping. Please follow up with [facility] and call with any questions or concerns, . Discharge Disposition: HOME WITH HOME HEALTH SERVICES
[2019-07-06] MEDS ORDERED: LOSARTAN 50 MG TAB PO SCH (09:00)
[2019-07-06] MEDS ORDERED: MELOXICAM 7.5 MG TAB PO SCH (09:00)
[2019-07-06 09:32] VITALS: BP 157/100
--- NOTE | 2019-07-06 10:33 | P.PN ---
Progress Note - Text 07/06 640am 54-year-old female status post total knee replacement. Patient has an On-Q pump for postop pain control with the solution running at 8 mL an hour with a VAS of 5. Plan to continue On-Q pump infusion
== END 2019-07-06 12:40 | disposition home health service (06) ==
LOC: OR 07:38 → EDSTATUS 09:20 → 4SSUR 11:12 → OR 07-06 12:40
PROVIDERS: ATTEND Orthopaedic Surgery
DX: M17.11 Unilateral primary osteoarthritis, right knee (principal); I10 Essential (primary) hypertension; F41.9 Anxiety disorder, unspecified; F32.9 Major depressive disorder, single episode, unspecified; Z79.899 Other long term (current) drug therapy; Z90.49 Acquired absence of other specified parts of digestive tract; Z98.51 Tubal ligation status; Z98.41 Cataract extraction status, right eye; Z98.42 Cataract extraction status, left eye; Z96.652 Presence of left artificial knee joint; Z97.3 Presence of spectacles and contact lenses; Z87.891 Personal history of nicotine dependence; Z82.49 Family history of ischemic heart disease and other diseases of the circulatory system
CPT/HCPCS: 97162; 64448; 76942; 85025; 88300; 73560; 27447; C1713; C1776; J2250; J0171; J1200; J1100; J0690 ×3; J2405; J2001; J3010; J1885; J1170 ×2; J2795 ×2; J0330; J2704; J0735

== ENCOUNTER 2021-01-25 18:27 | Observation (INO) | payer BC, OTHER ==
[2021-01-25] MEDS ORDERED: ONDANSETRON 4 MG/2 ML VIAL IVP STA ×2 (19:24→20:57)
[2021-01-25] MEDS ORDERED: SODIUM CHLORIDE 0.9% 1,000 ML IV STA (19:24)
--- NOTE | 2021-01-25 19:26 | ED ---
General Adult HPI - General Chief complaint: Nausea/Vomiting/Diarrhea Stated complaint: Vomiting, post dental surgery Time Seen by Provider: 01/25/21 19:08 Source: patient Mode of arrival: ambulatory Limitations: no limitations - History of Present Illness Initial comments: Dictation was produced using Brilig dictation software. please excuse any g rammatical, word or spelling errors. Chief Complaint: 55-year-old female presents with nausea and vomiting History of Present Illness: 55-year-old female presents emergency Department w ith nausea and vomiting. Thursday of this week patient had complete dental extraction in preparation for dentures. Patient states since after the procedure she has been having persistent nausea and vomiting. She states her emesis is nonbilious not bloody. She states that she starts and throat just after trying to consume anything. She is haven't poor tolerance for fluids and solids. Denies any fevers. She does have some mild epigastric pain. Denies any fevers. She has had less bowel movements since procedure. She thought that perhaps her symptoms were secondary to constipation. She denies any burning sensation in her abdomen. She has history of cholecystectomy The ROS documented in this emergency department record has been reviewed and confirmed by me. Those systems with pertinent positive or negative responses have been documented in the HPI. All other systems are other negative and/or noncontributory. PHYSICAL EXAM: General Impression: Alert and oriented x3, not in acute distress HEENT: Normocephalic atraumatic, extra-ocular movements intact, pupils equal and reactive to light bilaterally, mucous membranes moist. Cardiovascular: Heart regular rate and rhythm Chest: Able to complete full sentences, no retractions, no tachypnea Abdomen: abdomen soft, mild epigastric tenderness, non-distended, no organomegaly Musculoskeletal: Pulses present and equal in all extremities, no peripheral edema Motor: no focal deficits noted Neurological: CN II-XII grossly intact, no focal motor or sensory deficits noted Skin: Intact with no visualized rashes Psych: Normal affect and mood ED course: 55-year-old female presents emergency department with clinical presentation consistent to gastroenteritis. Vital signs upon arrival are within acceptable limits. Laboratory evaluation obtained. Leukocytosis of 17.7. Metabolic panel is unremarkable. Lipase is 165. Patient reevaluated at bedside. She still continues to feel symptoms in the epigastric area. With leukocytosis is concerning for surgical abdomen. CT was ordered showing acute pancreatitis. Given patient's degree of symptoms will have her admitted for acute pancreatitis. Case is discussed with Dr. Saleem who is willing to accept patients care for admission. GI is consulted. EKG interpretation: Ventricular rate 73, sinus rhythm,. Interval 1:30, QRS 90, QTC 427. No MS prolongation, no QTC prolongation, no ST or T-wave changes noted. EKG compared to 2018 showing no changes. Overall, this EKG is unremarkable - Related Data Home Medications Medication Instructions Recorded Confirmed Hydrocodone/Acetaminophen [Mahaffey 1 tab PO QID PRN 02/24/14 06/30/19 10-325] ALPRAZolam [Xanax] 1 mg PO BID PRN 05/21/16 06/30/19 Phentermine HCl [Adipex-P] 37.5 mg PO QAM 05/21/16 06/30/19 Losartan [Cozaar] 100 mg PO QAM 06/30/19 06/30/19 Previous Rx's Medication Instructions Recorded Aspirin 325 mg PO BID #60 tab 07/06/19 Allergies Allergy/AdvReac Type Severity Reaction Status Date / Time No Known Allergies Allergy Verified 01/25/21 19:01 Review of Systems ROS Statement: Those systems with pertinent positive or pertinent negative responses have been documented in the HPI. ROS Other: All systems not noted in ROS Statement are negative. Past Medical History Past Medical History: Hypertension Additional Past Medical History / Comment(s): back pain, migraines History of Any Multi-Drug Resistant Organisms: None Reported Past Surgical History: Cholecystectomy, Tubal Ligation Additional Past Surgical History / Comment(s): 05-26-16- TOTAL LT KNEE REPLACEMENT Past Anesthesia/Blood Transfusion Reactions: No Reported Reaction Past Psychological History: Anxiety Smoking Status: Former smoker Past Alcohol Use History: Rare Past Drug Use History: Marijuana - Past Family History Mother Family Medical History: CVA/TIA, Hypertension, Thyroid Disorder Father History Unknown: Yes Family Medical History: No Reported History, Unable to Obtain Sister(s) Family Medical History: Neurologic Disorder Son(s) Family Medical History: No Reported History General Exam Limitations: no limitations Course Vital Signs 01/25/21 01/25/21 01/25/21 18:58 21:17 22:09 Temperature 98.1 F 98.7 F Pulse Rate 85 70 71 Respiratory 20 20 16 Rate Blood Pressure 141/96 147/98 123/79 O2 Sat by Pulse 96 97 97 Oximetry Medical Decision Making - Lab Data Result diagrams: 01/25/21 19:58 01/25/21 19:58 Lab Results 01/25/21 01/25/21 Range/Units 19:58 19:58 WBC 17.7 H (3.8-10.6) k/uL RBC 4.94 (3.80-5.40) m/uL Hgb 14.3 (11.4-16.0) gm/dL Hct 43.2 (34.0-46.0) % MCV 87.4 (80.0-100.0) fL MCH 29.0 (25.0-35.0) pg MCHC 33.1 (31.0-37.0) g/dL RDW 13.8 (11.5-15.5) % Plt Count 299 (150-450) k/uL MPV 6.9 Neutrophils % 74 % Lymphocytes % 18 % Monocytes % 6 % Eosinophils % 0 % Basophils % 0 % Neutrophils # 13.1 H (1.3-7.7) k/uL Lymphocytes # 3.2 (1.0-4.8) k/uL Monocytes # 1.1 H (0-1.0) k/uL Eosinophils # 0.0 (0-0.7) k/uL Basophils # 0.1 (0-0.2) k/uL Sodium 136 L (137-145) mmol/L Potassium 4.1 (3.5-5.1) mmol/L Chloride 99 (98-107) mmol/L Carbon Dioxide 26 (22-30) mmol/L Anion Gap 11 mmol/L BUN 19 H (7-17) mg/dL Creatinine 0.80 (0.52-1.04) mg/dL Est GFR (CKD-EPI)AfAm >90 (>60 ml/min/1.73 sqM) Est GFR (CKD-EPI)NonAf 84 (>60 ml/min/1.73 sqM) Glucose 103 H (74-99) mg/dL Calcium 9.9 (8.4-10.2) mg/dL Magnesium 1.9 (1.6-2.3) mg/dL Lipase 165 (23-300) U/L Disposition Clinical Impression: Pancreatitis Disposition: ADMITTED IP TO THIS HOSP Condition: Fair Referrals: Chris Vick DO [Primary Care Provider] - 1-2 days
[2021-01-25 20:13] LABS: Basophils # (A) 0.1 k/uL (0-0.2); Basophils % (A) 0 %; Eosinophils % (A) 0 %; HCT 43.2 % (34.0-46.0); HGB 14.3 gm/dL (11.4-16.0); Lymphocytes # (A) 3.2 k/uL (1.0-4.8); Lymphocytes % (A) 18 %; MCHC 33.1 g/dL (31.0-37.0); MCV 87.4 fL (80.0-100.0); Mean Platelet Volume 6.9; Monocytes # (A) 1.1 k/uL (0-1.0); Monocytes % (A) 6 %; Neutrophils # (A) 13.1 k/uL (1.3-7.7); Neutrophils % (A) 74 %; Platelet Count 299 k/uL (150-450); RBC 4.94 m/uL (3.80-5.40); RDW 13.8 % (11.5-15.5); WBC 17.7 k/uL (3.8-10.6)
[2021-01-25 20:21] LABS: African American GFR (CKD) >90 (>60 ml/min/1.73 sqM); Anion Gap 11 mmol/L; Blood Urea Nitrogen 19 mg/dL (7-17); Calcium 9.9 mg/dL (8.4-10.2); Carbon Dioxide 26 mmol/L (22-30); Chloride 99 mmol/L (98-107); Glucose 103 mg/dL (74-99); Lipase 165 U/L (23-300); Magnesium 1.9 mg/dL (1.6-2.3); Non-African American GFR(CKD) 84 (>60 ml/min/1.73 sqM); Potassium 4.1 mmol/L (3.5-5.1); Sodium 136 mmol/L (137-145)
--- NOTE | 2021-01-25 20:40 | XR ---
EXAMINATION TYPE: XR abdomen 1V DATE OF EXAM: 01/25/2021 COMPARISON: NONE HISTORY: Abdominal pain TECHNIQUE: 2 views upright FINDINGS: There is no sign of intestinal obstruction or pneumoperitoneum. Fecal pattern is normal. Th ere is mild levoscoliosis. There are clips from cholecystectomy. IMPRESSION: Nonacute abdomen.
[2021-01-25] MEDS ORDERED: MORPHINE SULFATE 4 MG/ML SYRINGE IV STA (20:57)
--- NOTE | 2021-01-25 22:14 | CT ---
EXAMINATION TYPE: CT abdomen pelvis w con DATE OF EXAM: 01/25/2021 COMPARISON: None HISTORY: Post dental sx, abdominal pain, vomiting leukocytosis CT DLP: 1953.3 mGycm Automated exposure control for dose reduction was used. CONTRAST: Performed with IV Contrast, patient injected with 100 mL of Isovue 300. Images obtained from the diaphragm to the floor the pelvis with IV contrast. The lung bases are clear. There is no pleural effusion. There is no pericardial effusion. There are clips from cholecystectomy. Liver and spleen are intact. There is fat stranding around the head and body of the pancreas. This extends into the retroperitoneal fat anteriorly. Tail of the panc reas appears normal. The pancreatic duct is not dilated. The bile ducts are not dilated. There is no adrenal mass. Kidneys show satisfactory contrast opacification. There is no hydronephrosi s. Ureters are not dilated. There is no retroperitoneal adenopathy in the lower abdomen. Bladder dist ends smoothly. There is no inguinal hernia. Uterus is anteverted. There is no free fluid in the pelvi s. The lumbar vertebra have normal alignment. Posterior elements are intact. There is no compression fra cture. There is disc space narrowing at L4-5 and L5-S1. The bony pelvis is intact. The hip joints are intact. There is no evidence of a bowel obstruction. There is no free air. Appendix appears normal. There is no ascites. IMPRESSION: There is fat stranding around the head and body of the pancreas suggestive of acute pancreatitis. No definite pancreatic mass. No dilated ducts.
[2021-01-25] MEDS ORDERED: ACETAMINOPHEN TAB 325 MG TAB PO PRN (22:19)
[2021-01-25] MEDS ORDERED: NALOXONE 0.4 MG/ML 1 ML VIAL IV PRN (22:19)
[2021-01-25] MEDS ORDERED: ONDANSETRON 4 MG/2 ML VIAL IVP PRN (22:19)
[2021-01-25] MEDS: SODIUM CHLORIDE 0.9% 1,000 ML IV SCH (22:57)
[2021-01-26] MEDS: MORPHINE SULFATE 4 MG/ML SYRINGE IV PRN ×3 (03:22→21:02)
[2021-01-26] MEDS: SODIUM CHLORIDE 0.9% 1,000 ML IV SCH ×3 (05:39→19:51)
[2021-01-26] MEDS ORDERED: ALPRAZolam 1 MG TAB PO PRN (05:53)
[2021-01-26] MEDS ORDERED: HYDROcodone/APAP 10-325MG 1 EACH TAB PO PRN (05:53)
[2021-01-26] MEDS: LOSARTAN 50 MG TAB PO SCH (07:19)
[2021-01-26] MEDS: amLODIPine 10 MG TAB PO SCH (07:19)
--- NOTE | 2021-01-26 09:45 | CONS ---
CONSULTATION DATE OF SERVICE: 01/26/2021 REASON FOR CONSULTATION: Epigastric pain, nausea and vomiting of 4 days duration. HISTORY OF PRESENT ILLNESS: The patient is a 55-year-old pleasant white female who came to the emergency room complaining of severe epigastric pain associated with nausea and vomiting for the last 4 days duration. She had 13 teeth extracted on Thursday and after that she started having these symptoms. The pain is mostly in the epigastric area. She was having about 3 or 4 episodes of nonbloody emesis. The symptoms continued to progressively get worse. She came into the emergency room and she did have a CT of the abdomen and pelvis done that showed some fat stranding of the pancreas consistent with pancreatitis. Surprisingly her lipase is within normal limits. No history of alcohol use. She has remote history of gallbladder surgery many years ago. She received antiemetics and pain medications and she is feeling much better this morning. She never had these symptoms in the past. No prior history of peptic ulcer disease. No recent NSAID use. PAST MEDICAL HISTORY: Significant for hypertension, anxiety, chronic back pain. MEDICATIONS: At home, Bystolic, meloxicam, Norvasc, Adipex, Cozaar, [place], Xanax. ALLERGIES: None. PAST SURGICAL HISTORY: Gallbladder surgery many years ago. Recent tooth extraction, tubal ligation, total left knee replacement. FAMILY HISTORY: Mother with hypothyroidism and hypertension. Father unremarkable. Sister had some neurological disorder. REVIEW OF SYSTEMS: CARDIOPULMONARY: No chest pain or shortness of breath. : No dysuria or hematuria. MUSCULOSKELETAL: Unremarkable. SKIN: Unremarkable. ENDOCRINE: Unremarkable PSYCHIATRIC: Unremarkable. NEUROLOGY: Unremarkable. ENT/VISION: Unremarkable. CONSTITUTIONAL: No recent weight loss. No fever, chills, night sweats. HEMATOLOGY: Unremarkable. PHYSICAL EXAMINATION: GENERAL: She appears comfortable. VITAL SIGNS: Stable. Blood pressure 148/88, pulse is 66, temperature 98.7. HEENT: Examination unremarkable. Conjunctivae are pink. Sclerae anicteric. Oral cavity no lesions. NECK: No JVD or lymph node enlargement. CHEST: Clear to auscultation. HEART: Regular rate and rhythm. ABDOMEN: Soft, very minimal tenderness in the epigastric area. Bowel sounds are positive, no organomegaly. EXTREMITIES: No pedal edema. SKIN: No rashes. NEURO: She is alert and oriented x3. No focal deficits. LABS: WBC 17.7, hemoglobin 14, platelets normal. BUN 19, creatinine 0.8. IMPRESSION: 1. This is a lady who presented to the hospital with acute onset of severe epigastric pain associated with nausea and vomiting for the last 4 days duration since her tooth extraction done last Thursday. CT of the abdomen and pelvis done did show changes in the pancreas with fat stranding consistent with acute pancreatitis. Surprisingly, lipase level is within normal limits at 165. The patient does have prior history of peptic ulcer disease diagnosed 3 or 4 years ago. She has been taking meloxicam for chronic back pain. Possibility of peptic ulcer disease causing pancreatitis needs to be considered. 2. Mild leukocytosis secondary to acute pancreatitis. 3. History of hypertension. 4. History of chronic back pain. RECOMMENDATIONS: 1. Start on Protonix 40 mg twice daily. 2. Start on clear liquid diet. 3. Monitor labs closely. 4. If she continues to remain symptomatic, we will consider an upper endoscopy. We will follow with you closely. Thank you for this consultation. RAJWINDERL / IJN: [id number] /
[2021-01-26] MEDS: PANTOPRAZOLE 40 MG TABLET PO SCH ×2 (10:13→17:16)
[2021-01-26] MEDS: ONDANSETRON 4 MG/2 ML VIAL IVP PRN ×2 (14:33→21:02)
--- NOTE | 2021-01-26 16:07 | P.HPIM ---
History of Present Illness H&P Date: 01/26/21 Chief Complaint: Abdominal pain nausea vomiting This is a 55-year-old pleasant lady patient of Dr. Vick. Has underlying history off GERD, hypertension, chronic back pain, for which she recently had gotten her dental appliance 4 d ago, and is awaiting for new dentures. Patient's been on a clear liquid diet mainly ice cream, and Pedialyte juices, occasionally would have scrambled egg, now has increasing nausea vomiting and epigastric abdominal pain. Patient takes [place] on a routine basis from Dr. Banks for chronic lumbar disc disease problem, however she is also on meloxicam. Patient denies any Motrin use or NSAID use, denies any fever chills has nausea vomiting. Has bilious emesis, without hematemesis, or hematochezia. Patient denies any previous gastric ulceration in the past, however she had a previous cholecystectomy for gallbladder infection, no history of sore stones. Patient is not a regular alcohol intake, however had approximately 4 beers one week ago, secondary to a wedding that they attended to. Emergency room CAT scan of the abdomen was performed, that shows fatty stranding around the head and body of the pancreas suggestive of acute pancreatitis, lipase was normal. There is no abdominal obstruction, no free air, appendix appears normal spleen and liver appears normal, common bile duct and pancreatic duct is not dilated. No hydronephrosis, ureters are not dilated. No lymphadenopathy. EKG is unremarkable sinus rhythm without any acute ST-T wave changes, consult were made with Dr. Ramesh, for evaluation off the pancreatic fat ty stranding, with normal lipase, as well as suspected gastritis. Patient was started on PPI, no troponin obtained, and patient started on clears, home medications resumed, except for meloxicam Past Medical History Past Medical History: Hypertension Additional Past Medical History / Comment(s): back pain, migraines History of Any Multi-Drug Resistant Organisms: None Reported Past Surgical History: Cholecystectomy, Tubal Ligation Additional Past Surgical History / Comment(s): 05-26-16- TOTAL LT KNEE REPLACEMENT Past Anesthesia/Blood Transfusion Reactions: No Reported Reaction Past Psychological History: Anxiety, Depression Smoking Status: Former smoker Past Alcohol Use History: Rare Past Drug Use History: Marijuana - Past Family History Mother Family Medical History: CVA/TIA, Hypertension, Thyroid Disorder Father History Unknown: Yes Family Medical History: No Reported History, Unable to Obtain Sister(s) Family Medical History: Neurologic Disorder Son(s) Family Medical History: No Reported History Medications and Allergies Home Medications Medication Instructions Recorded Confirmed Type Hydrocodone/Acetaminophen [[place] 1 tab PO QID PRN 02/24/14 01/25/21 History 10-325] ALPRAZolam [Xanax] 1 mg PO BID PRN 05/21/16 01/25/21 History Phentermine HCl [Adipex-P] 37.5 mg PO DAILY 05/21/16 01/25/21 History Losartan [Cozaar] 100 mg PO DAILY 06/30/19 01/25/21 History Meloxicam 15 mg PO DAILY 01/25/21 01/25/21 History Nebivolol [Bystolic] 5 mg PO HS 01/25/21 01/25/21 History amLODIPine [Norvasc] 10 mg PO DAILY 01/25/21 01/25/21 History Allergies Allergy/AdvReac Type Severity Reaction Status Date / Time No Known Allergies Allergy Verified 01/25/21 22:29 Physical Exam Vitals: Vital Signs Temp Pulse Pulse Resp BP BP Pulse Ox 01/26/21 07:18 98.7 F 66 18 148/88 95 01/26/21 00:00 151/89 01/25/21 23:07 98.6 F 72 15 167/113 95 01/25/21 22:57 98.5 F 71 18 106/66 95 01/25/21 22:09 98.7 F 71 16 123/79 97 01/25/21 21:17 70 20 147/98 97 01/25/21 18:58 98.1 F 85 20 141/96 96 Intake and Output 01/25/21 01/26/21 01/26/21 22:59 06:59 14:59 Other: Voiding Method Toilet Weight 102.965 kg - Constitutional General appearance: cooperative, no acute distress - EENT Eyes: PERRLA, poor dentition ENT: NA/AT, normal oropharynx - Neck Neck: normal ROM - Respiratory Respiratory: bilateral: CTA, negative: diminished, rales, rhonchi - Cardiovascular Rhythm: regular Heart sounds: normal: S1, S2 - Gastrointestinal General gastrointestinal: normal bowel sounds, soft, tenderness Localized gastrointestinal: tender: epigastric periumbilical - Integumentary Integumentary: normal - Neurologic Neurologic: CNII-XII intact - Musculoskeletal Musculoskeletal: gait normal - Psychiatric Psychiatric: A&O x's 3, appropriate affect, intact judgment & insight Results CBC & Chem 7: 01/25/21 19:58 01/25/21 19:58 Labs: Abnormal Lab Results - Last 24 Hours (Table) 01/25/21 01/25/21 Range/Units 19:58 19:58 WBC 17.7 H (3.8-10.6) k/uL Neutrophils # 13.1 H (1.3-7.7) k/uL Monocytes # 1.1 H (0-1.0) k/uL Sodium 136 L (137-145) mmol/L BUN 19 H (7-17) mg/dL Glucose 103 H (74-99) mg/dL Laboratory Results WBC 17.7 k/uL (3.8-10.6) H 01/25/21 19:58 RBC 4.94 m/uL (3.80-5.40) 01/25/21 19:58 Hgb 14.3 gm/dL (11.4-16.0) 01/25/21 19:58 Hct 43.2 % (34.0-46.0) 01/25/21 19:58 MCV 87.4 fL (80.0-100.0) 01/25/21 19:58 MCH 29.0 pg (25.0-35.0) 01/25/21 19:58 MCHC 33.1 g/dL (31.0-37.0) 01/25/21 19:58 RDW 13.8 % (11.5-15.5) 01/25/21 19:58 Plt Count 299 k/uL (150-450) 01/25/21 19:58 MPV 6.9 01/25/21 19:58 Neutrophils % 74 % 01/25/21 19:58 Lymphocytes % 18 % 01/25/21 19:58 Monocytes % 6 % 01/25/21 19:58 Eosinophils % 0 % 01/25/21 19:58 Basophils % 0 % 01/25/21 19:58 Neutrophils # 13.1 k/uL (1.3-7.7) H 01/25/21 19:58 Lymphocytes # 3.2 k/uL (1.0-4.8) 01/25/21 19:58 Monocytes # 1.1 k/uL (0-1.0) H 01/25/21 19:58 Eosinophils # 0.0 k/uL (0-0.7) 01/25/21 19:58 Basophils # 0.1 k/uL (0-0.2) 01/25/21 19:58 Sodium 136 mmol/L (137-145) L 01/25/21 19:58 Potassium 4.1 mmol/L (3.5-5.1) 01/25/21 19:58 Chloride 99 mmol/L (98-107) 01/25/21 19:58 Carbon Dioxide 26 mmol/L (22-30) 01/25/21 19:58 Anion Gap 11 mmol/L 01/25/21 19:58 BUN 19 mg/dL (7-17) H 01/25/21 19:58 Creatinine 0.80 mg/dL (0.52-1.04) 01/25/21 19:58 Est GFR (CKD-EPI)AfAm >90 (>60 ml/min/1.73 sqM) 01/25/21 19:58 Est GFR (CKD-EPI)NonAf 84 (>60 ml/min/1.73 sqM) 01/25/21 19:58 Glucose 103 mg/dL (74-99) H 01/25/21 19:58 Calcium 9.9 mg/dL (8.4-10.2) 01/25/21 19:58 Magnesium 1.9 mg/dL (1.6-2.3) 01/25/21 19:58 Lipase 165 U/L (23-300) 01/25/21 19:58 Coronavirus (PCR) Not Detected (Not Detectd) 01/25/21 22:56 Thrombosis Risk Factor Assmnt - DVT/VTE Prophylaxis DVT/VTE Prophylaxis: Low risk, early ambulation encouraged - Choose All That Apply Each Factor Represents 1 point: Age 41-60 years, Obesity (BMI >25) Thrombosis Risk Factor Assessment Total Risk Factor Score: 2 Thrombosis Risk Factor Assessment Level: Low Risk Assessment and Plan Plan: Acute abdominal pain, with gastritis, on chronic pain medication, meloxicam as well as [place], status post cholecystectomy, severe gastritis-like symptoms is suspected, however no evidence of chemical pancreatitis, however there is evidence off fatty stranding in the head of the pancreas, with recent consumption off alcohol 7 days prior to admission, related to a celebration. Patient currently is on PPI, 40 mg twice a day, meloxicam is on hold. Monitor for any GI losses, Dr. Ramesh is on consult, with possible EGD should his symptoms not improved. 2. Hypertension on amlodipine 10 mg daily, by systolic 5 mg at bedtime no [place] 100 mg daily 3. Cholecystectomy in the past for gallbladder necrosis, no history off, bladder stones 4. Chronic pain, on chronic opiates, provided by pain specialist continue [place], with caution for its use BMI 42, on phentermine prior to admission Observation status, if patient's symptoms would improve, may discharge over the next 2448 hrs.
[2021-01-26] MEDS ORDERED: NEBIVOLOL 5 MG TAB PO SCH (21:00)
[2021-01-27] MEDS: ONDANSETRON 4 MG/2 ML VIAL IVP PRN (03:02)
[2021-01-27] MEDS: MORPHINE SULFATE 4 MG/ML SYRINGE IV PRN (03:02)
[2021-01-27] MEDS: amLODIPine 10 MG TAB PO SCH (07:15)
[2021-01-27] MEDS: PANTOPRAZOLE 40 MG TABLET PO SCH (07:15)
[2021-01-27] MEDS: LOSARTAN 50 MG TAB PO SCH (07:15)
[2021-01-27 07:35] VITALS: RESP 16
--- NOTE | 2021-01-27 09:00 | PN ---
PROGRESS NOTE DATE OF SERVICE: 01/27/2021 INTERVAL HISTORY: Patient is a 55-year-old pleasant white female admitted to the hospital with epigastric pain, nausea, vomiting [address] scan showed evidence of acute pancreatitis. However, her lipase was normal. She was started on clear liquid diet yesterday and started on Protonix 40 mg twice daily. She is doing much better. The abdominal pain has resolved. She still has some nausea but denies any new symptoms. No emesis. PHYSICAL EXAMINATION: GENERAL: She appears comfortable. VITAL SIGNS: Stable. Blood pressure is 134/80, pulse is 63, temperature 99.1. HEENT: Examination unremarkable. Conjunctivae are pink. Sclerae anicteric. Oral cavity no lesions. NECK: No JVD or lymph node enlargement. CHEST: Clear to auscultation. HEART: Regular rate and rhythm. ABDOMEN: Soft, it was nontender, nondistended, obese. Bowel sounds are positive. EXTREMITIES: No pedal edema. SKIN: No rashes. NEURO: She is alert and oriented x3. No focal deficits. LABS: No labs available from today. Troponins have been less than 0.012. IMPRESSION: 1. Acute onset of epigastric pain associated with nausea, vomiting and CT scan showed evidence of mild fat stranding of the pancreas consistent with acute pancreatitis. However, lipase has been normal. She was started on clear liquid diet yesterday as well as Protonix and pain medications and she is doing much better this morning. Nausea and vomiting has resolved. 2. Recent tooth extraction. 3. History of hypertension. RECOMMENDATIONS: 1. Continue with Protonix 40 mg twice daily. 2. Advance diet as tolerated. 3. If her symptoms improve, she can be discharged home later today or tomorrow. Thank you for this consultation. MMODL / IJN: [id number] /
[2021-01-27] MEDS: SODIUM CHLORIDE 0.9% 1,000 ML IV SCH (10:12)
[2021-01-27 13:04] VITALS: BP 143/86; PULSE 65; TEMP 98.5
--- NOTE | 2021-01-27 17:30 | P.DS ---
Providers Date of admission: 01/25/21 22:19 Expected date of discharge: 01/27/21 Attending physician: Jana Saleem Consults: 01/25/21 22:20 Consult Physician Routine Consulting Provider: Idania Jaffe Consult Reason/Comments: pancreatitis Do you want consulting provider notified?: Yes Primary care physician: Chris [facility] Hospital Course: This is a 55-year-old pleasant lady patient of Dr. Vick. Has underlying history off GERD, hypertension, chronic back pain, for which she recently had gotten her dental appliance 4 d ago, and is awaiting for new dentures. Patien t's been on a clear liquid diet mainly ice cream, and Pedialyte juices, occasionally would have scrambled egg, now has increasing nausea vomiting and epigastric abdominal pain. Patient takes [place] on a routine basis from Dr. Banks for chronic lumbar disc disease problem, however she is also on meloxicam. Patient denies any Motrin use or NSAID use, denies any fever chills has nausea vomiting. Has bilious emesis, without hematemesis, or hematochezia. Patient denies any previous gastric ulceration in the past, however she had a previous cholecystectomy for gallbladder infection, no history of sore stones. Patient is not a regular alcohol intake, however had approximately 4 beers one week ago, secondary to a wedding that they attended to. Emergency room CAT scan of the abdomen was performed, that shows fatty stranding around the head and body of the pancreas suggestive of acute pancreatitis, lipase was normal. There is no abdominal obstruction, no free air, appendix appears normal spleen and liver appears normal, common bile duct and pancreatic duct is not dilated. No hydronephrosis, ureters are not dilated. No lymphadenopathy. EKG is unremarkable sinus rhythm without any acute ST-T wave changes, consult were made with Dr. Ramesh, for evaluation off the pancreatic fatty stranding, with normal lipase, as well as suspected gastritis. Patient was started on PPI, no troponin obtained, and patient started on clears, home medications resumed, except for meloxicam 01/27. Patient has tolerated an oral regular diet today, bumpiness improved, no nausea no vomiting, patient does not any fevers, no melena no hematochezia. No chest pain, patient was seen by Dr. Jaffe later today, and has given clearance for discharge. Patient is also feeling much better, and is also wanting to go home today. Patient was counseled regarding meloxicam used to take with food, and avoid excessive intake of alcohol, especially itching holidays FINAL DIAGNOSIS Acute abdominal pain, with gastritis, on chronic pain medication, meloxicam as well as [place], status post cholecystectomy, severe gastritis-like symptoms is suspected, however no evidence of chemical pancreatitis, however there is evidence off fatty stranding in the head of the pancreas, with recent consumption off alcohol 7 days prior to admission, related to a celebration. Patient currently is on PPI, 40 mg twice a day, meloxicam is on hold. Monitor for any GI losses, Dr. Ramesh is on consult, with possible EGD should his symptoms not improved. 2. Hypertension on amlodipine 10 mg daily, by systolic 5 mg at bedtime no [place] 100 mg daily 3. Cholecystectomy in the past for gallbladder necrosis, no history off, bladder stones 4. Chronic pain, on chronic opiates, provided by pain specialist continue [place], with caution for its use BMI 42, on phentermine prior to admission Observation status, Disposition discharged to home symptoms have improved Discharge Medication List Hydrocodone/Acetaminophen [[place] 10-325] 1 tab PO QID PRN 02/24/14 [History] ALPRAZolam [Xanax] 1 mg PO BID PRN 05/21/16 [History] Phentermine HCl [Adipex-P] 37.5 mg PO DAILY 05/21/16 [History] Losartan [Cozaar] 100 mg PO DAILY 06/30/19 [History] Meloxicam 15 mg PO DAILY 01/25/21 [History] Nebivolol [Bystolic] 5 mg PO HS 01/25/21 [History] amLODIPine [Norvasc] 10 mg PO DAILY 01/25/21 [History] Pantoprazole [Protonix] 40 mg PO AC-BID #60 tablet. 01/27/21 [Rx] Patient Condition at Discharge: Fair Plan - Discharge Summary Discharge Rx Participant: Yes New Discharge Prescriptions: New Pantoprazole [Protonix] 40 mg PO AC-BID #[address] tablet[address] Palacio Hydrocodone/Acetaminophen [[place] 10-325] 1 tab PO QID PRN PRN Reason: Pain ALPRAZolam [Xanax] 1 mg PO BID PRN PRN Reason: Anxiety Phentermine HCl [Adipex-P] 37.5 mg PO DAILY Losartan [Cozaar] 100 mg PO DAILY Nebivolol [Bystolic] 5 mg PO HS Meloxicam 15 mg PO DAILY amLODIPine [Norvasc] 10 mg PO DAILY Discharge Medication List Hydrocodone/Acetaminophen [[place] 10-325] 1 tab PO QID PRN 02/24/14 [History] ALPRAZolam [Xanax] 1 mg PO BID PRN 05/21/16 [History] Phentermine HCl [Adipex-P] 37.5 mg PO DAILY 05/21/16 [History] Losartan [Cozaar] 100 mg PO DAILY 06/30/19 [History] Meloxicam 15 mg PO DAILY 01/25/21 [History] Nebivolol [Bystolic] 5 mg PO HS 01/25/21 [History] amLODIPine [Norvasc] 10 mg PO DAILY 01/25/21 [History] Pantoprazole [Protonix] 40 mg PO AC-BID #60 tablet. 01/27/21 [Rx] Follow up Appointment(s)/Referral(s): Chris Vick DO [Primary Care Provider] - 1-2 days Patient Instructions/Handouts: Pancreatitis (DC) Discharge Disposition: HOME SELF-CARE
== END 2021-01-27 14:01 | disposition home or self-care (01) ==
LOC: EC 18:27 → 4SSUR 22:19
PROVIDERS: ADMIT Family Medicine; ATTEND Family Medicine
DX: K29.70 Gastritis, unspecified, without bleeding (principal); K85.90 Acute pancreatitis without necrosis or infection, unspecified; I10 Essential (primary) hypertension; G43.909 Migraine, unspecified, not intractable, without status migrainosus; K21.9 Gastro-esophageal reflux disease without esophagitis; G89.29 Other chronic pain; M51.36 Other intervertebral disc degeneration, lumbar region; F41.9 Anxiety disorder, unspecified; E66.9 Obesity, unspecified; Z68.41 Body mass index [BMI] 40.0-44.9, adult; Z79.1 Long term (current) use of non-steroidal anti-inflammatories (NSAID); Z79.899 Other long term (current) drug therapy; Z98.890 Other specified postprocedural states; Z96.652 Presence of left artificial knee joint; Z90.49 Acquired absence of other specified parts of digestive tract; Z98.51 Tubal ligation status; Z87.891 Personal history of nicotine dependence; Z87.11 Personal history of peptic ulcer disease; Z82.49 Family history of ischemic heart disease and other diseases of the circulatory system; Z82.0 Family history of epilepsy and other diseases of the nervous system; Z83.49 Family history of other endocrine, nutritional and metabolic diseases; Z82.3 Family history of stroke
CPT/HCPCS: 96376 ×3; 96361; 96374; 96375; 99285; 36415; 93005; 80048; 83690; 83735; 84484; 85025; 87635; 74018; 74177; G0378 ×3; J2270 ×3; J2405 ×3; Q9967

== ENCOUNTER → 2022-09-10 | Outpatient (CLI) | payer BC, OTHER ==
--- NOTE | 2022-09-10 11:08 | XR ---
EXAMINATION TYPE: XR lumbosacral spine min 4V DATE OF EXAM: 09/10/2022 CLINICAL HISTORY: pain COMPARISON: NONE TECHNIQUE: Frontal, lateral, and oblique images of the lumbar spine are obtained. FINDINGS: There are 5 lumbar type vertebral bodies identified. The lumbar spine shows satisfactory alignment without evidence of acute fracture or dislocation. Vertebral body heights are within normal limits. Moderate to severe multilevel degenerative disc space narrowing. The overlying soft tissue appears unremarkable. IMPRESSION: No acute fracture or dislocation is seen in the lumbar spine.ICD 10 NO FRACTURE, INITIAL EVALUATION
== END | disposition home or self-care (01) ==
LOC: RADXRMAIN 10:31
PROVIDERS: ATTEND Physical Medicine & Rehabilitation
DX: M54.50 Low back pain, unspecified (principal)
CPT/HCPCS: 72110